=== PATIENT | female | born 1985 | race Two or more races ===

== ENCOUNTER 2018-12-18 09:00 | Inpatient (IN) | payer BC ==
[~2018-12-18] VITALS: Ht 160 cm; Wt 64.8 kg
[~2018-12-18 09:00] MED LIST: PRENAT PO
[2018-12-18] MEDS ORDERED: LACTATED RINGER'S 1,000 ML IV SCH (09:44)
[2018-12-18] MEDS ORDERED: CEFAZOLIN 2 GM/50 ML (PMX) 50 ML IVPB ONE (09:50)
[2018-12-18] MEDS ORDERED: OXYTOCIN 30 UNITS/LR 500 ML BAG IV ONE (09:51)
[2018-12-18] MEDS ORDERED: morphine SULFATE/PF (10 MG/10 ML) INJ ONE (09:51)
[2018-12-18] MEDS ORDERED: EPHEDrine 25 MG/5 ML SYG ONE (09:51)
[2018-12-18] MEDS ORDERED: PHENYLephrine (100 MCG/ML) 5ML SYG ONE (09:51)
[2018-12-18 09:52] VITALS: Ht 160 cm; Wt 64.8 kg
[2018-12-18 09:53] VITALS: BP 112/66; PULSE 85; RESP 18
--- NOTE | 2018-12-18 09:53 | PREOPHP ---
DATE OF ADMISSION: 12/18/2018 HISTORY OF PRESENT ILLNESS: Ms. Radha Rosales is a 33-year-old 2, para 1, EDC 12/24/2018 i ntrauterine at 39 weeks gestational age, admitted today for elective repeat delive ry. She denies any contractions, vaginal bleeding, or discharge. She reports good movement. Her care took place with Dr. Roberts. PAST MEDICAL HISTORY: None. MEDICATIONS: vitamins. PAST SURGICAL HISTORY: Previous x1, appendectomy. GYNECOLOGIC HISTORY: 12, regular 3 to 4 days. Denies any sexually transmitted infections. Sexually active with 1 partner. SOCIAL HISTORY: Denies any smoking, drugs or alcohol. FAMILY HISTORY: None. REVIEW OF SYSTEMS: All within normal except history of present illness. PHYSICAL EXAMINATION: HEENT: Within normal. LUNGS: CTA bilateral. CARDIOVASCULAR: S1, S2, regular rhythm. ABDOMEN: Gravid, nontender. Negative CVA bilateral. EXTREMITIES: Negative. No calf tenderness. PELVIC: Vaginal exam deferred. heart tracing category 1. [place]: regular contractions. ASSESSMENT: Intrauterine at 39 weeks' gestational age, previous section x1, kush es elective repeat delivery. Declined vaginal after . PLAN: Consent for repeat delivery. Risks, benefits and alternatives explained. All questi ons were answered. Dictated By: REMIGIO KUMAR/MONICA Conf#: [id number] DID#: [id number]
[2018-12-18] MEDS ORDERED: OXYTOCIN 30 UNITS/LR 500 ML IV PRN ×2 (10:00→11:30)
[2018-12-18] MEDS ORDERED: CARBOPROST 250 MCG INJ IM PRN ×2 (10:00→11:30)
[2018-12-18] MEDS ORDERED: METHYLERGONOVINE 0.2 MG INJ IM PRN ×2 (10:00→11:30)
[2018-12-18] MEDS ORDERED: OXYTOCIN 30 UNITS/LR 500 ML IV SCH ×2 (10:00→11:06)
[2018-12-18] MEDS ORDERED: CEFAZOLIN 2 GM/50 ML (PMX) 50 ML IVPB SCH (10:00)
[2018-12-18] MEDS ORDERED: MISOPROSTOL 200 MCG TAB PR PRN ×2 (10:00→11:30)
--- NOTE | 2018-12-18 10:09 | PREAC ---
Date/Time of Note Date/Time of Note DATE: 12/18/18 TIME: 10:09 Anesthesia Eval and Record Evaluation Time Pre-Procedure Interview DATE: 12/18/18 TIME: 10:09 Age 33 Sex female NPO: 8 hrs Preoperative diagnosis Planned procedure repeat c/s Past Medical History Past Medical History: None Surgery & Anesthesia Issues No known issue Meds Anticoagulation: No Beta Thomas within 24 hr: No Reason Beta Thomas not given: Pt. not on B-Thomas Reported Medications Multivit/Min/Fol Ac/Iron/Pren* ( S*) 1 Tab Tab, 1 TAB PO DAILY, TAB 12/26/15 Current Medications Lactated Ringer's 1,000 ml @ 125 mls/hr Q8H IV ; Start 12/18/18 at 09:44 Cefazolin Sodium/ Dextrose 50 ml @ 100 mls/hr ONCE IVPB ; Start 12/18/18 at 10:00 Oxytocin/Lactated Ringer's 500 ml @ 125 mls/hr POST IV ; Start 12/18/18 at 10:00 Oxytocin/Lactated Ringer's 500 ml @ 0 mls/hr ONCE PRN IV .VAGINAL BLEEDING; Start 12/18/18 at 10:00 Methylergonovine Maleate (Methergine) 0.2 mg ONCE PRN IM .VAGINAL BLEEDING; Start 12/18/18 at 10:00 Carboprost Tromethamine (Hemabate) 250 mcg ONCE PRN IM .VAGINAL BLEEDING; Start 12/18/18 at 10:00 Misoprostol (Cytotec) 1,000 mcg ONCE PRN UT .VAGINAL BLEEDING; Start 12/18/18 at 10:00 Meds reviewed: Yes Allergies Coded Allergies: No Known Allergy (Unverified , 12/26/15) Allergies Reviewed: Yes Labs/Studies Labs Reviewed: Reviewed by anesthesiologist Result Diagram: 12/18/18 0950 Laboratory Tests 12/18/18 09:50 test: Positive Pre-procedure Exam Last vitals Vital Signs Date Temp Pulse Resp B/P (MAP) Pulse Ox O2 O2 Flow FiO2 Time Delivery Rate 12/18/18 97.6 85 18 112/66 98 Room Air 09:53 (81) Airway: Adequate mouth opening, Adequate thyromental dist Mallampati: Mallampati II Teeth: Normal Lung: Normal Heart: Normal ASA Physical Status ASA physical status: 1 Emergency: None Pre-operative Attestations Prior to commencing anesthesia and surgery, the patient was re-evaluated, there was verification of: *The patient's identity *The results of appropriate recent lab work and preoperative vital signs *The above evaluation not changing prior to induction *Anesthetic plan, risk benefits, alternative and complications discussed with patient/family; questions answered; patient/family understands, accepts and wishes to proceed. FAMILIA MARTINEZ Dec 18, 2018 10:09
[2018-12-18] MEDS ORDERED: ALBUTEROL 0.083% (NEB) 2.5 MG/3 ML AMP HHN PRN (10:30)
[2018-12-18] MEDS ORDERED: KETOROLAC 30 MG INJ IV PRN (10:30)
[2018-12-18] MEDS ORDERED: HYDROmorphONE 1 MG/5 ML IV SYRINGE IV PRN ×2 (10:30)
[2018-12-18] MEDS ORDERED: ONDANSETRON 4 MG INJ IV PRN ×2 (10:30)
[2018-12-18] MEDS ORDERED: NALOXONE (0.4 MG/ML) INJ IV PRN (10:30)
[2018-12-18] MEDS ORDERED: METOCLOPRAMIDE 10 MG INJ IV PRN (10:30)
[2018-12-18] MEDS ORDERED: HYDROmorphONE 0.5 MG/0.5 ML SYG IV PRN ×2 (10:30)
[2018-12-18] MEDS ORDERED: FENTAnyl 50 MCG/ML VIAL IV PRN ×2 (10:30)
[2018-12-18] MEDS ORDERED: DIPHENHYDRAMINE 50 MG INJ IV PRN ×2 (10:30)
[2018-12-18] MEDS ORDERED: ONDANSETRON 4 MG INJ ONE (10:31)
--- NOTE | 2018-12-18 11:03 | OPPN ---
Date/Time of Note Date/Time of Note DATE: 12/18/18 TIME: 10:57 Operative Report Planned Procedure Procedure date Dec 18, 2018 Procedure(s) repeat low transverse CD Performed by see signature line Moisture Meter Reader: FABI JENKINS MD 2nd Moisture Meter Reader none Anesthesiologist: FAMILIA MARTINEZ Pre-procedure diagnosis Intrauterine at 39 weeks' gestational age, previous section x1, desires elective repeat delivery. Declined vaginal after . [id number] Anesthesia Type: Hxewk0j spinal Post-Procedure Post-procedure diagnosis same Findings a viable female 8/9 weight 3100 grams. normal uterus tubes and ovaries Estimated Blood Loss: 500 - 600 mls Specimen(s) none Grafts/Implant(s) none Complication(s) none REMIGIO MAYERS MD Dec 18, 2018 11:03
[2018-12-18] MEDS ORDERED: OXYCODONE/ACETAMINOPHEN (5/325) TAB PO PRN ×2 (11:30)
[2018-12-18] MEDS: CEFAZOLIN 2 GM/50 ML (PMX) 50 ML IVPB SCH ×2 (11:30→19:49)
[2018-12-18] MEDS ORDERED: NACL 0.9% 3 ML SYG IV SCH (11:30)
[2018-12-18] MEDS ORDERED: LANOLIN HPA 1 PKT TOP PRN (11:30)
[2018-12-18] MEDS: IBUPROFEN 600 MG TAB PO SCH ×2 (12:00→18:00)
--- NOTE | 2018-12-18 12:18 | OPR ---
DATE OF OPERATION: PREOPERATIVE DIAGNOSIS: Intrauterine at 39 weeks' gestational age, previous secti on x1, desires elective repeat delivery. Declined vaginal after . POSTOPERATIVE DIAGNOSIS: Intrauterine at 39 weeks' gestational age, previous sect ion x1, desires elective repeat delivery. Declined vaginal after . OPERATION PERFORMED: Repeat low transverse delivery via Pfannenstiel incision. SURGEON: Mio So MD ICT TEACHER: Dr. Jen Celeste. ANESTHESIOLOGIST: Dr. Coelho. ANESTHESIA: Spinal. ESTIMATED BLOOD LOSS: 500 mL. COMPLICATIONS: None. FINDINGS: A viable female, 8 and 9 respectively at 1 and 5 minutes, weight 3100 grams. Normal uterus, tubes and ovaries. DESCRIPTION OF PROCEDURE: After explaining the risks, benefits and alternatives, the patient and con sent signed in chart, the patient was taken to the operating room where spinal anesthesia was found t o be adequate. She was then prepared and draped in normal sterile fashion in dorsal position with a leftward tilt. A Pfannenstiel skin incision was then made with a scalpel and carried to the underlyi ng fascia. The fascia was incised in the midline. Incision was extended laterally with Armstrong scissor s. The superior aspect of the fascial incision was grasped with curved clamps, elevated and the unde rlying rectus muscles dissected bluntly. Attention was then turned to the inferior aspect and incisi on was done. The fascia was grasped, tented up with curved clamps and rectus muscles were dissected off bluntly. The rectus muscles were in midline, peritoneum identified, tented up and ente red sharply with Metzenbaum scissors. The peritoneal incision was extended superiorly with good visu alization of bladder. The bladder blade was inserted and lower segment incised in transverse fashion with a scalpel. The uterine incision was extended laterally. The bladder blade was removed and the 's head delivered atraumatically. Nose and mouth were suctioned, cord clamped and cut. The i nfant was handed off to the waiting pillowcase maker. The placenta was then removed. The uterus was ext eriorized and cleared of all clots and debris. The uterine incision was repaired with 0 Monocryl in a running locked fashion. A second layer of same suture was used for imbrication and obtained excell ent hemostasis. The uterus was returned to the abdomen. The gutters were cleared of all clots. The peritoneum and rectus abdominis was reapproximated with 2-0 Monocryl in interrupted fashion. The fa scia was reapproximated with 0 Vicryl in a running fashion. The subcutaneous tissue was reapproximat ed with 2-0 plain gut in a running fashion. The skin was closed with absorbable génesis. The patien t tolerated procedure well. Sponge, lap and needle counts correct x2. The patient was taken to zion very room in stable condition. Dictated By: MIO KUMAR/NTS Conf#: [id number] DID#: [id number] CC: JEN CELESTE MD;*End*
[2018-12-18 15:20] VITALS: BP 104/52; PULSE 74; RESP 18
[2018-12-18 16:42] VITALS: BP 110/55; PULSE 76; RESP 18
[2018-12-18 20:15] VITALS: BP 103/54; PULSE 80; RESP 17
[2018-12-18] MEDS: LACTATED RINGER'S 1,000 ML IV SCH (22:58)
[2018-12-19] MEDS: KETOROLAC 30 MG INJ IV PRN ×2 (03:12→09:57)
[2018-12-19] MEDS: CEFAZOLIN 2 GM/50 ML (PMX) 50 ML IVPB SCH ×2 (03:52→09:56)
[2018-12-19 03:59] VITALS: BP 100/80; PULSE 80; RESP 18
[2018-12-19] MEDS: IBUPROFEN 600 MG TAB PO SCH ×5 (06:00→23:48)
[2018-12-19] MEDS: LACTATED RINGER'S 1,000 ML IV SCH (06:00)
[2018-12-19 08:00] VITALS: BP 104/51; PULSE 83; RESP 20
[2018-12-19 08:45] VITALS: BP 104/51; RESP 20
--- NOTE | 2018-12-19 13:28 | QN ---
Documentation Comment progress note pod 1 patient seen and evaluated no complaints vs stable afebrile ab c/d/i no distention extremity no edema no calf tenderness a/ sp cs pod 1 stable afebrile p/ iron supplement encourage ambulation REMIGIO MAYERS MD Dec 19, 2018 13:28
[2018-12-19 16:00] VITALS: BP 116/58; PULSE 78; RESP 18
[2018-12-19 20:00] VITALS: BP 116/56; PULSE 74; RESP 18
[2018-12-19] MEDS: FERROUS SULFATE (EC) 325 MG TAB PO SCH (21:01)
[2018-12-20 04:00] VITALS: BP 108/57; PULSE 78; RESP 18
[2018-12-20] MEDS: IBUPROFEN 600 MG TAB PO SCH ×3 (06:21→17:29)
--- NOTE | 2018-12-20 07:28 | QN ---
Documentation Comment progress note pod 2 patient seen and evaluated no complaints vs stable afebrile ab c/d/i no distention extremity no edema no calf tenderness a/ sp cs pod 2 stable afebrile p/discharge home tomorrow REMIGIO MAYERS MD Dec 20, 2018 07:28
--- NOTE | 2018-12-20 07:30 | PD.PPDC ---
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
[2018-12-20] MEDS: FERROUS SULFATE (EC) 325 MG TAB PO SCH ×2 (08:27→21:23)
[2018-12-20 08:30] VITALS: BP 108/58; PULSE 83; RESP 18
--- NOTE | 2018-12-20 13:08 | DS ---
DATE OF ADMISSION: 12/18/2018 DATE OF DISCHARGE: 12/21/2018 PRIMARY DIAGNOSES: 1. Intrauterine at 39 weeks' gestational age. 2. Previous section x1. 3. Desires elective repeat delivery. 4. Declined vaginal after . PROCEDURE: Repeat low transverse delivery. CONDITION ON DISCHARGE: Stable. ACTIVITY: None per vagina, no lifting x6 weeks. DIET: Regular. MEDICATIONS ON DISCHARGE: 1. Motrin. 2. Iron. 3. Colace. DISCHARGE SUMMARY: Ms. Radha Rosales underwent a repeat low transverse delivery on 2018. She had a viable male, 8 and 9 respectively at 1 and 5 minutes, weight 3100 grams. She had an uneventful postop day 1 and 2. She will be discharged on postop day 3. Her incision is clean , dry, and intact. She is ambulating, tolerating diet, positive flatulence, positive bowel movement. She will follow up in the clinic in 2 weeks for /postop care. Dictated By: REMIGIO KUMAR/MONICA Conf#: [id number] DID#: [id number]
[2018-12-20 17:11] VITALS: BP 117/60; PULSE 85; RESP 18
[2018-12-20 20:00] VITALS: BP 108/61; PULSE 80; RESP 18
[2018-12-21] MEDS: IBUPROFEN 600 MG TAB PO SCH ×3 (00:22→12:35)
[2018-12-21 04:00] VITALS: BP 118/81; PULSE 80; RESP 18
[2018-12-21] MEDS: FERROUS SULFATE (EC) 325 MG TAB PO SCH (09:46)
[2018-12-21] MEDS ORDERED: BISACODYL 10 MG SUPP PR ONE (12:30)
--- NOTE | 2018-12-22 07:42 | PAC ---
Date/Time of Note Date/Time of Note DATE: 12/22/18 TIME: 07:42 Post-Anesthesia Notes Post-Anesthesia Note Last documented vital signs Vital Signs Date Temp Pulse Resp B/P (MAP) Pulse Ox O2 O2 Flow FiO2 Time Delivery Rate 12/21/18 97.9 80 18 118/81 Room Air 04:00 (93) 12/19/18 97 08:00 Activity: WNL Respiratory function: WNL Cardiovascular function: WNL Mental status: Baseline Pain reasonably controlled: Yes Hydration appropriate: Yes Nausea/Vomiting absent: Yes FAMILIA MARTINEZ Dec 22, 2018 07:42
--- NOTE | 2018-12-22 15:25 | DELSUM ---
Delivery Summary A-C Datetime Report Generated by CPN: 12/22/2018 15:25 DELIVERY PERSONNEL Regional Sales Associate: Salazar, Dequan MATERNAL INFORMATION Delivery Anesthesia: Spinal Medications in Delivery: SEE ANESTHESIA Delivery QBL (ml): 500 Placenta Cultured: No Maternal Complications: None Other Maternal Complications: scheduled c/s LABOR SUMMARY EDC: 12/22/2018 00:00 No. Babies in Womb: 1 Attempted: No Labor Anesthesia: None LABOR INFORMATION Reason for Induction: Not Applicable Group B Beta Strep: Negative Antibiotics # of Doses: 1 Antibiotics Time of Last Dose: 12/18/2018 19:17 Steroids Given: None Reason Steroids Not Administered: Not Applicable MEMBRANES Membranes Rupture Method: Artificial Rupture of Membranes: 12/18/2018 10:21 Length of Rupture (hr): 0.00 Amniotic Fluid Color: Clear Amniotic Fluid Amount: Moderate Amniotic Fluid Odor: Normal STAGES OF LABOR Stage 3 hr: 0 Stage 3 min: 1 CSECTION DELIVERY Primary Indication: Repeat Elective Secondary Indication: N/A CSection Urgency: Non Elective CSection Incidence: Repeat Labor: No Labor Elective: Nonelective CSection Incision: Lower Uterine Transverse BABY A INFORMATION Delivery Date/Time: 12/18/2018 10:21 Method of Delivery: Born in Route : No : N/A Forceps: N/A Vacuum Extraction: N/A Shoulder Dystocia : N/A SHOULDER DYSTOCIA BABY A Infant Delivery Date/Time: 12/18/2018 10:21 PRESENTATION/POSITION BABY A Presentation: Cephalic Cephalic Presentation: Vertex Vertex Position: Left Occipital Anterior Breech Presentation: N/A PLACENTA INFORMATION BABY A Placenta Delivery Time : 12/18/2018 10:22 Placenta Method of Delivery: Manual Removal Placenta Status: Delivered SCORES BABY A Heart Rate 1 min: >100 bpm Resp Effort 1 min: Good Cry Reflex Irritability 1 min: Cough/Sneeze/Pulls Away Muscle Tone 1 min: Active Motion Color 1 min: Blue/Pale Resuscitation Effort 1 min: Tactile Stimulation SCORE 1 MIN: 8 Heart Rate 5 min: >100 bpm Resp Effort 5 min: Good Cry Reflex Irritability 5 min: Cough/Sneeze/Pulls Away Muscle Tone 5 min: Active Motion Color 5 min: Body Mims, Extremit Blue Resuscitation Effort 5 min: Tactile Stimulation SCORE 5 MIN: 9 INFANT INFORMATION BABY A Gestational Age at Delivery: 39.3 Gestational Status: Full Term- 39- 40.6 Weeks Infant Outcome : Liveborn, with signs of life Condition : Stable Sex: Female IDENTIFICATION/MEDS BABY A ID Band Number: [id number] ID Band Location: Right Leg; Left Arm Sensor Applied: Yes Sensor Number: [id number] Sensor Location : Cord Clamp Vitamin K Given : Not Given Erythromycin Given: Not Given WEIGHT/LENGTH BABY A Infant Birthweight (gm): 3100 Infant Weight (lb): 6 Weight (oz): 13 Length (in): 19.50 Length (cm): 49.53 CORD INFORMATION BABY A No. Cord Vessels: 3 Nuchal Cord : N/A Cord Blood Taken: Yes Banking/Donate Info: NO Suction: Mouth; Nose ASSESSMENT BABY A Complications: None Physical Findings at Delivery: Within Normal Limits Infant Respirations: Appears Normal Employee Relations Manager/ALS Called : No Infant Care By: GEM GIBSON Transferred To: Remains with Mother
--- NOTE | 2019-01-04 19:44 | CONS ---
Consultation Date/Type/Reason Admit Date/Time Dec 18, 2018 at 09:00 Initial Consult Date 12/19/18 Type of Consult anesthesia Reason for Consultation duramorph f/u Date/Time of Note DATE: 01/04/19 TIME: 19:43 24 HR Interval Summary Free Text/Dictation Pt seen and examined on 12/19/18 was POD#1 s/p repeat c/s. Pt received spinal duramorph for post-op pain control. She stated she had no pain. FAMILIA MARTINEZ Jan 04, 2019 19:44
== END 2018-12-21 15:15 | disposition home or self-care (01) | DRG 788 ==
LOC: L-D 09:00 → PP1 15:04
PROVIDERS: ADMIT Obstetrics & Gynecology; ATTEND Obstetrics & Gynecology
PROC: 10D00Z1 Extraction of Products of Conception, Low, Open Approach (ICD-10-PCS; principal; 2018-12-18 10:30)
DX: O65.5 Obstructed labor due to abnormality of maternal pelvic organs (principal); O34.211 Maternal care for low transverse scar from previous cesarean delivery; Z3A.39 39 weeks gestation of pregnancy; Z37.0 Single live birth
CPT/HCPCS: 85025; 85610; 85730; 86592; 86850; 86900; 86901; 87340; 99464; J0690; J1885; J2274; J2370; J2405; J2590; J7120